=== PATIENT | female | born 1955 | race Caucasian/White ===

== ENCOUNTER 2017-10-19 14:26 | Outpatient (CLI) | payer BC | END 2017-10-19 14:27 | disposition critical access hospital (66) | LOC: EMS 14:26 | PROVIDERS: ATTEND Surgery | DX: R11.2 Nausea with vomiting, unspecified (principal) | CPT/HCPCS: A0425; A0427 ==

== ENCOUNTER 2017-10-19 14:44 | Emergency (ER) | payer BC ==
[2017-10-19] MEDS ORDERED: PROMETHAZINE INJ 12.5 MG in SODIUM CHLORIDE 0.9% 50 ML IV STA (15:06)
[2017-10-19] MEDS ORDERED: SODIUM CHLORIDE 0.9% 1,000 ML IV ONE ×2 (15:06→16:12)
[2017-10-19] MEDS ORDERED: PROMETHAZINE 25 MG/1 ML VIAL ONE (15:16)
[2017-10-19] MEDS ORDERED: LORazepam 2 MG/ML SYRINGE IVP STA (15:22)
[2017-10-19 15:26] LABS: BASOPHILS # (AUTO) 0.1 10^3/uL (0.0-0.1); BASOPHILS % (AUTO) 0.8 %; EOSINOPHILS # (AUTO) 0.1 10^3/uL (0.0-0.7); EOSINOPHILS % (AUTO) 0.6 %; HCT - HEMATOCRIT 40.1 % (37.0-47.0); HGB - HEMOGLOBIN 13.5 g/dL (12.0-16.0); LYMPHOCYTES # (AUTO) 1.1 10^3/uL (1.5-3.5); LYMPHOCYTES % (AUTO) 12.5 %; MEAN CORPUSCULAR HEMOGLOBIN 30.2 pg (27.0-31.0); MEAN CORPUSCULAR HGB CONC 33.8 g/dL (32.0-36.0); MEAN CORPUSCULAR VOLUME 89.4 fL (81.0-99.0); MEAN PLATELET VOLUME 8.1 fL (7.9-10.8); MONOCYTES % (AUTO) 11.8 %; NEUTROPHILS # (AUTO) 6.3 10^3/uL (1.5-6.6); NEUTROPHILS % (AUTO) 74.3 %; RED BLOOD COUNT 4.48 10^6/uL (4.20-5.40); RED CELL DISTRIBUTION WIDTH 13.3 % (12.0-15.0); UNCORRECTED WHITE BLOOD COUNT 8.4 x10^3/uL; WHITE BLOOD COUNT 8.4 x10^3/uL (4.8-10.8)
[2017-10-19 15:37] LABS: ALBUMIN/GLOBULIN RATIO 1.1 (1.0-2.2); BILIRUBIN,TOTAL 0.6 mg/dL (0.2-1.0); CALCIUM 10.2 mg/dL (8.5-10.3); CREATININE 0.8 mg/dL (0.4-1.0); TOTAL PROTEIN 6.8 g/dL (6.7-8.2)
[2017-10-19] MEDS ORDERED: LORazepam 2 MG/ML SYRINGE ONE (16:17)
[2017-10-19] MEDS ORDERED: HALOPERIDOL 5 MG/ML VIAL IVP ONE (16:36)
[2017-10-19] MEDS ORDERED: HALOPERIDOL 5 MG/ML VIAL ONE (16:47)
[2017-10-19] MEDS ORDERED: POTASSIUM CHLOR 10 MEQ/100 ML 10 MEQ/100 ML BAG IV ONE ×2 (17:55→18:21)
[2017-10-19] MEDS ORDERED: diphenhydrAMINE INJ 50 MG/ML VIAL IVP STA (18:00)
[2017-10-19 18:16] LABS: BILIRUBIN,URINE NEGATIVE (NEGATIVE); UA w/ MICROSCOPIC CHARGE YES
[2017-10-19] MEDS ORDERED: diphenhydrAMINE INJ 50 MG/ML VIAL ONE (18:21)
[2017-10-19 18:23] LABS: UR CULTURE IF IND NOT INDICATED; WBC,URINE 0-3 /HPF (0-5)
--- NOTE | 2017-10-19 18:37 | ED Physician Documentation ---
PD HPI ABD PAIN - Stated complaint Stated Complaint: N/V - Chief complaint Chief Complaint: Abd Pain - History obtained from History obtained from: Patient - History of Present Illness Timing - duration: Weeks (2) Timing - details: Still present Quality: Aching (mild) Location: Epigastric Associated symptoms: Nausea, Vomiting. No: Fever, Diarrhea, Dysuria, Chest pain - Additional information Additional information: The patient is a 62-year-old female who presents with nausea and vomiting of 2 weeks duration. She has a history of Mnire's disease and has had similar episodes in the past, sometimes lasting as long as 3 weeks. She reports mild upper abdominal discomfort. She denies fever or dysuria. She reports decreased urine output. Zofran has helped in the past, but she recently moved here from [place] and has no local physician and currently has no Zofran. Past medical history is significant for breast cancer for which she is status post right lumpectomy and chemotherapy. Review of Systems Constitutional: denies: Fever Ears: denies: Tinnitus/ringing Nose: denies: Congestion Throat: denies: Sore throat Cardiac: denies: Chest pain / pressure Respiratory: denies: Dyspnea, Cough GI: reports: Abdominal Pain (Mild), Nausea, Vomiting. 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 Psych: Depression, Anxiety - Past Surgical History Past Surgical History: Yes /[employer] ARCHITECT: Other (lumpectomy for breast cancer) HEENT: Tonsil/Adenoidectomy - Present Medications Home Medications: Ambulatory Orders Medication Instructions Recorded Confirmed Citalopram Hydrobromide 0 mg PO DAILY 10/19/17 10/19/17 [Citalopram HBr] Ondansetron Odt [Zofran] 4 mg TL Q6H PRN #14 tablet 10/19/17 Rosuvastatin Calcium [Crestor] 20 mg PO DAILY 10/19/17 10/19/17 - Allergies Allergies/Adverse Reactions: Allergies Allergy/AdvReac Type Severity Reaction Status Date / Time No Known Drug Allergies Allergy Verified 10/19/17 14:50 - Social History Does the pt smoke?: Yes Smoking Status: Current every day smoker Does the pt drink ETOH?: Yes Additional Social History: Recently moved here from [place]. - POLST Patient has POLST: No PD ED PE NORMAL - Vitals Vital signs reviewed: Yes (tachycardia) - General General: Alert and oriented X 3, Well developed/nourished, Other (Appears miserable, wretching upon arrival in ED.) - HEENT HEENT: Atraumatic, EOMI, Moist mucous membranes, Pharynx benign - Neck Neck: Supple, no meningeal sign, No adenopathy, No JVD - Cardiac Cardiac: No murmur, Other (Rapid rate, regular rhythm.) - Respiratory Respiratory: No respiratory distress, Clear bilaterally - Abdomen Abdomen: Soft, Non tender, No organomegaly - Back Back: No CVA TTP - Derm Derm: No rash - Extremities Extremities: No edema, No calf tenderness / cord - Neuro Neuro: Alert and oriented X 3, No motor deficit, No sensory deficit Results - Vitals Vitals: Oxygen O2 Source Room air - Labs Labs: Laboratory Tests 10/19/17 10/19/17 10/19/17 15:18 15:18 18:10 WBC 8.4 RBC 4.48 Hgb 13.5 Hct 40.1 MCV 89.4 MCH 30.2 MCHC 33.8 RDW 13.3 Plt Count 305 MPV 8.1 Neut # 6.3 Lymph # 1.1 L [place] # 1.0 Eos # 0.1 Baso # 0.1 Absolute Nucleated RBC 0.00 Nucleated RBC % 0.0 Sodium 135 Potassium 3.0 L Chloride 99 L Carbon Dioxide 22 Anion Gap 14.0 H BUN 16 Creatinine 0.8 Estimated GFR (MDRD) 73 L Glucose 133 H Calcium 10.2 Total Bilirubin 0.6 AST 19 ALT 18 Alkaline Phosphatase 123 H Total Protein 6.8 Albumin 3.6 Globulin 3.2 Albumin/Globulin Ratio 1.1 Lipase 31 Urine Color YELLOW Urine Clarity CLEAR Urine pH 6.0 Ur Specific [place] >=1.030 H Urine Protein NEGATIVE Urine Glucose (UA) NEGATIVE Urine Ketones 40 H Urine Occult Blood NEGATIVE Urine Nitrite NEGATIVE Urine Bilirubin NEGATIVE Urine Urobilinogen 0.2 (NORMAL) Ur Leukocyte Esterase TRACE H Urine RBC None Seen Urine WBC 0-3 Ur Squamous Epith Cells MOD Squamous H Urine Bacteria Few Urine Casts 3-5 Hyaline Casts Urine Mucus Moderate Strands Ur Microscopic Review INDICATED Urine Culture Comments NOT INDICATED PD MEDICAL DECISION MAKING - ED course Complexity details: reviewed results, re-evaluated patient, considered differential, d/w patient ED course: The patient's presentation is significant for prolonged nausea and vomiting with associated dehydration. The underlying cause of her nausea and vomiting is most likely exacerbation of her Mnire's disease. The possibility of drug withdrawal was considered, but the patient denies any history of chronic narcotic, benzodiazepine, opiate drug use, or alcohol. Her presentation does not suggest an acute abdomen. Treatment in the emergency department included administration of normal saline 2 L IV, Phenergan 12.5 mg IV, lorazepam 1 mg IV, Haldol 1 mg IV, with Benadryl 25 mg IV. In addition potassium 25 mEq was administered orally for a low potassium of 3.0. Following the above treatment the patient felt subjectively improved, and her nausea resolved. She is being discharged with prescription for Zofran. I discussed with her symptomatic treatment, outpatient follow-up, as well as potentially worrisome signs or symptoms that should prompt reevaluation in the emergency department. Departure - Departure Disposition: 01 Home, Self Care Clinical Impression: Dehydration, Hypokalemia Vomiting Qualifiers: Vomiting type: unspecified Vomiting Intractability: unspecified Nausea presence : with nausea Qualified Code(s): R11.2 - Nausea with vomiting, unspecified Menieres disease Qualifiers: Laterality: unspecified laterality Qualified Code(s): H81.09 - Meniere's disease, unspecified ear Condition: Stable Instructions: ED Dehydration, ED Meniere Disease, ED Nausea Vomiting Follow-Up: [facility] [Provider Group] Prescriptions: Ondansetron Odt [Zofran] 4 mg TL Q6H PRN #14 tablet PRN Reason: Nausea / Vomiting Comments: Drink plenty of fluids. You can use Zofran as prescribed if needed for nausea. Follow-up with primary physician within 1-2 weeks. Call to schedule appointment. Return to the emergency department if you develop increasing abdominal pain, persistent vomiting, recurrent dehydration, or otherwise worsening symptoms. Discharge Date/Time: 10/19/17 19:25
[2017-10-19] MEDS ORDERED: POTASSIUM BICARB 25 MEQ TABLET PO STA (18:43)
[2017-10-19] MEDS ORDERED: POTASSIUM BICARB 25 MEQ TABLET PO ONE (18:53)
[2017-10-19 19:26] VITALS: BP 147/69
== END 2017-10-19 19:25 | disposition home or self-care (01) ==
LOC: ED 14:44
DX: E86.0 Dehydration (principal); E87.6 Hypokalemia; H81.09 Meniere's disease, unspecified ear; Z85.3 Personal history of malignant neoplasm of breast; F17.200 Nicotine dependence, unspecified, uncomplicated
CPT/HCPCS: 36415; 80053; 81001; 83690; 85025; 96361; 96365; 96375; 99284; A9270; J2060; J7040; 81003; 87086

== ENCOUNTER 2017-11-19 14:11 | Emergency (ER) | payer BC ==
[2017-11-19] MEDS ORDERED: KETOROLAC 60 MG/2 ML VIAL IVP STA (14:52)
[2017-11-19] MEDS ORDERED: SODIUM CHLORIDE 0.9% 1,000 ML IV ONE (14:52)
[2017-11-19] MEDS ORDERED: LORazepam 2 MG/ML VIAL IVP STA ×2 (14:52→18:27)
--- NOTE | 2017-11-19 15:02 | ED Physician Documentation ---
PD HPI CHEST PAIN - Stated complaint Stated Complaint: COUGHING/VOMITING - Chief complaint Chief Complaint: Abd Pain - History obtained from History obtained from: Patient - History of Present Illness Timing - onset: Other (Recently moved from [place]. She lives with her here. She has a history of Mnire's disease and is a heavy smoker. Since late September she has had an exacerbation of her many years and basically feels dizzy all the time and is vomiting a lot. She also started coughing yesterday and has bilateral anterior rib pain from coughing. 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 Psych: Depression, Anxiety - Past Surgical History Past Surgical History: Yes /BUILDING CERTIFIER: Other (lumpectomy for breast cancer) HEENT: Tonsil/Adenoidectomy - Present Medications Home Medications: Ambulatory Orders Medication Instructions Recorded Confirmed Citalopram Hydrobromide 0 mg PO DAILY 10/19/17 10/19/17 [Citalopram HBr] Ondansetron Odt [Zofran] 4 mg TL Q6H PRN #14 tablet 10/19/17 Rosuvastatin Calcium [Crestor] 20 mg PO DAILY 10/19/17 10/19/17 diazePAM [Valium] 5 mg PO TID PRN #20 tablet 11/19/17 - Allergies Allergies/Adverse Reactions: Allergies Allergy/AdvReac Type Severity Reaction Status Date / Time No Known Drug Allergies Allergy Verified 11/19/17 14:16 - Social History Does the pt smoke?: Yes Smoking Status: Current every day smoker Does the pt drink ETOH?: Yes - Family History Family history: reports: Non contributory - POLST Patient has POLST: No PD ED PE NORMAL - Vitals Vital signs reviewed: Yes - General General: Alert and oriented X 3, No acute distress - HEENT HEENT: PERRL, EOMI, Ears normal - Neck Neck: Supple, no meningeal sign, No bony TTP - Cardiac Cardiac: RRR, No murmur, Other (Tenderness of both anterior low ribs on both sides.) - Respiratory Respiratory: No respiratory distress, Clear bilaterally - Abdomen Abdomen: Soft, Non tender - Extremities Extremities: No edema, No calf tenderness / cord - Neuro Neuro: Alert and oriented X 3, associate broker 2-12 intact, Normal speech Eye Opening: Spontaneous Motor: Obeys Commands Verbal: Oriented GCS Score: 15 - Psych Psych: Normal mood, Normal affect Results - Vitals Vitals: Vital Signs - 24 hr 11/19/17 14:14 Temperature 36.3 C L Heart Rate 110 H Respiratory 18 Rate Blood Pressure 114/46 L O2 Saturation 96 Oxygen O2 Source Room air - Labs Labs: Laboratory Tests 11/19/17 11/19/17 15:16 15:16 WBC 12.0 H RBC 4.47 Hgb 13.1 Hct 38.9 MCV 86.9 MCH 29.3 MCHC 33.7 RDW 13.5 Plt Count 351 MPV 8.0 Neut # Not Reportable Lymph # Not Reportable [place] # Not Reportable Eos # Not Reportable Baso # Not Reportable Absolute Nucleated RBC Not Reportable Total Counted 100 Band Neuts % (Manual) 1 Abnorm Lymph % (Manual) 0 Nucleated RBC % Not Reportable Neutrophils # (Manual) 9.4 H Lymphocytes # (Manual) 1.4 L Monocytes # (Manual) 1.2 H Eosinophils # (Manual) 0.0 Basophils # (Manual) 0.0 Differential Comment MANUAL DIFFERENTIAL Manual Slide Review Indicated Platelet Estimate NORMAL (130-450,000) Platelet Morphology RARE GIANT PLATELETS RBC Morph Micro Appear NORMAL APPEARANCE Sodium 127 L Potassium 3.3 L Chloride 88 L Carbon Dioxide 26 Anion Gap 13.0 BUN 11 Creatinine 0.5 Estimated GFR (MDRD) 125 Glucose 133 H Calcium 10.5 H Total Bilirubin 0.6 AST 33 ALT 62 H Alkaline Phosphatase 175 H Total Protein 7.2 Albumin 2.6 L Globulin 4.6 H Albumin/Globulin Ratio 0.6 L Lipase 34 Ethyl Alcohol < 5.0 - Rads (name of study) B ribs and CXR Radiology: EMP read contemporaneously (Right upper lobe opacity, no rib fracture ) CT Chest Radiology: EMP read contemporaneously (Right upper lobe cavitary mass with extension to the pleura and mediastinal lymphadenopathy. This is consistent with a primary lung cancer and there are multiple areas of metastasis including the left ventricle, left anterior chest wall, right abdominal wall mass, multiple liver metastases, pancreatic masses, adrenal metastasis and complex left renal mass.) PD MEDICAL DECISION MAKING - ED course ED course: This is a 62-year-old woman who presents with dizziness, weight loss, and chest pain that she thinks is from her ribs. X-ray demonstrates what is concerning for lung cancer and this is followed with a chest CT that confirmed the diagnosis. She plans to go home to [place] to have this treated and requested a prescription for Valium in the interim which is not unreasonable. Departure - Departure Disposition: , Self Care Clinical Impression: Dizziness Metastatic primary lung cancer Qualifiers: Laterality: right Qualified Code(s): C34.91 - Malignant neoplasm of unspecified part of right bronchus or lung Condition: Good Record reviewed to determine appropriate education?: Yes Instructions: Cancer Lung Dc Prescriptions: diazePAM [Valium] 5 mg PO TID PRN #20 tablet PRN Reason: Spasms Comments: Follow-up with your oncologist as soon as possible with a copy of your CAT scan on CD. Return anytime if worse. Do not drink or drive while taking the Valium.
[2017-11-19 15:27] LABS: BASOPHILS % (AUTO) 0.4 %; EOSINOPHILS % (AUTO) 0.7 %; HGB - HEMOGLOBIN 13.1 g/dL (12.0-16.0); LYMPHOCYTES % (AUTO) 9.8 %; MEAN CORPUSCULAR HEMOGLOBIN 29.3 pg (27.0-31.0); MEAN CORPUSCULAR HGB CONC 33.7 g/dL (32.0-36.0); MEAN CORPUSCULAR VOLUME 86.9 fL (81.0-99.0); MONOCYTES % (AUTO) 10.8 %; NEUTROPHILS % (AUTO) 78.3 %; PLT - PLATELET COUNT 351 10^3/uL (130-450); RED BLOOD COUNT 4.47 10^6/uL (4.20-5.40); RED CELL DISTRIBUTION WIDTH 13.5 % (12.0-15.0)
[2017-11-19 15:30] LABS: ABNORMAL LYMPHS % (MANUAL) 0 %
[2017-11-19 15:32] LABS: ALBUMIN 2.6 g/dL (3.2-5.5); ALBUMIN/GLOBULIN RATIO 0.6 (1.0-2.2); ALKALINE PHOSPHATASE 175 IU/L (42-121); ALT ALANINE AMINOTRANSFERASE 62 IU/L (10-60); AST ASPARTATE AMINOTRANSFERASE 33 IU/L (10-42); BILIRUBIN,TOTAL 0.6 mg/dL (0.2-1.0); BUN - BLOOD UREA NITROGEN 11 mg/dL (6-20); CALCIUM 10.5 mg/dL (8.5-10.3); CARBON DIOXIDE - CO2 26 mmol/L (21-32); CHLORIDE 88 mmol/L (101-111); CREATININE 0.5 mg/dL (0.4-1.0); GFR - MDRD 125 (>89); GLUCOSE 133 mg/dL (70-100); LIPASE 34 U/L (22-51); SODIUM 127 mmol/L (135-145); TOTAL PROTEIN 7.2 g/dL (6.7-8.2)
[2017-11-19 15:52] LABS: BAND NEUTROPHILS % (MANUAL) 1 %; LYMPHOCYTES # (MANUAL) 1.4 10^3/uL (1.5-3.5); LYMPHOCYTES % (MANUAL) 12 %; MONOCYTES # (MANUAL) 1.2 10^3/uL (0.0-1.0); NEUTROPHILS # (MANUAL) 9.4 10^3/uL (1.5-6.6); NEUTROPHILS % (MANUAL) 77 %; PLATELET MORPHOLOGY RARE GIANT PLATELETS (NORMAL); RBC MORPHOLOGY (MULTIPLE) NORMAL APPEARANCE (NORMAL)
[2017-11-19 15:53] LABS: DIFFERENTIAL COMMENT MANUAL DIFFERENTIAL; PLATELET ESTIMATE, MANUAL NORMAL (130-450,000) (NORMAL)
--- NOTE | 2017-11-19 16:01 | XRAY Report ---
EXAM: BILATERAL RIB RADIOGRAPHY EXAM DATE: 11/19/2017 03:38 PM. CLINICAL HISTORY: Ribs pain. COMPARISON: None. TECHNIQUE: 1 view of the chest and 3 views of the ribs. FINDINGS: Bones: Normal. No fracture or bone lesion. Lungs: There is an irregular focal opacity located within the right upper lobe. There is no pneumotho rax. The left lung appears clear. Mediastinum: Heart and mediastinal contours are unremarkable. Other: None. IMPRESSION: 1. Right upper lobe opacity with differential diagnosis including pneumonia, neoplasm, scarring. Comp arison with previous chest x-ray recommended. Serial follow-up chest x-ray recommended if findings ar e clinically suspicious for pneumonia. Depending on clinical suspicion, CT could be considered. 2. No rib fracture. [facility] Referring Provider Line: [phone] SITE ID: [id number]
--- NOTE | 2017-11-19 16:01 | XRAY Preliminary Report ---
Exam: XR RIBS BILAT W/CHEST 4 VIEW IMPRESSION: 1. Right upper lobe opacity with differential diagnosis including pneumonia, neoplasm, scarring. Comp arison with previous chest x-ray recommended. Serial follow-up chest x-ray recommended if findings ar e clinically suspicious for pneumonia. Depending on clinical suspicion, CT could be considered. 2. No rib fracture. [facility] SITE ID: [id number]
[2017-11-19] MEDS ORDERED: MORPHINE 2 MG/ML SYRINGE IVP STA (16:27)
[2017-11-19] MEDS ORDERED: IOPAMIDOL-300 100 ML VIAL ONE (16:40)
[2017-11-19] MEDS ORDERED: IOPAMIDOL-300 100 ML VIAL IVP ONE (17:00)
--- NOTE | 2017-11-19 18:13 | CT Preliminary Report ---
Exam: CT CHEST W/ IMPRESSION: 1. Large right upper lobe cavitary lung mass with extension to the pleura and right hilum most concer hawa for lung malignancy. Mediastinal lymphadenopathy most concerning for metastasis. 2. Multiple low-density masses in the left ventricle myocardium. These are concerning for multiple my ocardial metastasis. 3. Left anterior chest wall masses concerning for metastasis. Right upper abdominal wall mass concern ing for metastasis. 4. Multiple liver metastasis. 5. Multiple pancreatic masses, could represent metastasis versus primary neoplasm. 6. Possible adrenal metastasis. 7. Complex left renal mass, could represent metastasis versus primary renal malignancy versus complex renal cyst. Otherwise, as above. [facility] SITE ID: [id number]
--- NOTE | 2017-11-19 18:36 | CT Report ---
EXAM: CT CHEST EXAM DATE: 11/19/2017 05:01 PM. CLINICAL HISTORY: Abnormal chest x-ray. COMPARISONS: Chest 11/19/2017. TECHNIQUE: Routine helical CT imaging was performed through the chest. IV contrast: None. Reconstruct ions: Coronal and sagittal. In accordance with CT protocol optimization, one or more of the following dose reduction techniques w ere utilized for this exam: automated exposure control, adjustment of mA and/or KV based on patient s ize, or use of iterative reconstructive technique. FINDINGS: Lungs: Thick-walled cavitary mass seen in the right upper lobe extending to the right hilum measures 6 x 3.7 cm on axial image 25. There is adjacent lung airspace disease. Small nodular opacities seen s uperior to the mass concerning for local metastasis. Opacification extends to the pleura with focal p leural thickening seen at the anterolateral aspect. Emphysema is present, mild to moderate. No pleura l effusion or pneumothorax. Mediastinum: Few tiny low densities in the thyroid, one of the largest seen on the right side measuri ng 5 mm, could be tiny thyroid cyst or low density nodules. Right-sided paratracheal lymphadenopathy measures 1.7 x 2.1 cm on axial image 22. Subcarinal lymphade nopathy measures 1.8 cm on axial image 30. Right hilar mass measures 3.8 x 2.4 cm on axial image 29. Anterior to this is lymphadenopathy that is located lateral to the superior vena cava, measures 1.8 x 2 cm on axial image 31. Normal heart size. Multiple low density masses are seen in the left ventricle in the myocardium, one of the largest is seen at the inferior aspect measuring 3.1 x 2.6 cm. There is a left lateral ventric ular mass measuring 2.3 x 3.6 cm extending into the pericardium. No thoracic aortic aneurysm or disse ction. Coronary artery calcification. Small pericardial effusion. Upper abdomen: Multiple small masses or nodular thickening of the bilateral adrenal glands. Adrenal m etastasis not excluded. Multiple low density masses concerning for liver metastasis, one of the largest measures 2.5 cm in th e lateral segment left hepatic lobe. There are a couple of masses at the junction of the right and le ft hepatic lobe, largest measures 2.4 cm. Multiple low-density masses are seen at the body of the garner creas with the group of masses together measuring 4 x 3.6 cm on axial image 62. There is a small low- density mass at the uncinate process of the pancreas measuring 9 mm. There is a complex-appearing mas s seen at the anterior midpole left kidney on axial image 70 measuring 2 x 2.1 cm. Tiny nonspecific l ow-density lesion is seen medial to this measuring 5 mm. Anterior to the left second rib, there is a chest wall mass measuring 1.9 x 1.5 cm on axial image 20 concerning for metastasis. Another mass anterior to the left anterior sixth rib concerning for metast asis measures 2.5 x 1.6 cm. Right upper abdomen lateral wall subcutaneous mass in the wall measuring 9 mm, probably a metastasis. No acute bone findings are seen. IMPRESSION: 1. Large right upper lobe cavitary lung mass with extension to the pleura and right hilum most concer hawa for lung malignancy. Mediastinal lymphadenopathy most concerning for metastasis. 2. Multiple low-density masses in the left ventricle in the myocardium. These are concerning for mult iple myocardial metastasis. 3. Left anterior chest wall masses concerning for metastasis. Right upper abdominal wall mass concern ing for metastasis. 4. Multiple liver metastasis. 5. Multiple pancreatic masses, could represent metastasis versus primary neoplasm. 6. Possible adrenal metastasis. 7. Complex left renal mass, could represent metastasis versus primary renal malignancy versus complex renal cyst. Otherwise, as above. [facility] Referring Provider Line: [phone] SITE ID: [id number]
[2017-11-19 18:39] VITALS: BP 110/62
[2017-11-19] MEDS ORDERED: POTASSIUM BICARB 25 MEQ TABLET PO STA (18:44)
[2017-11-19] MEDS ORDERED: diphenhydrAMINE 25 MG CAPSULE PO STA (19:00)
== END 2017-11-19 19:25 | disposition home or self-care (01) ==
LOC: ED 14:11
DX: C78.01 Secondary malignant neoplasm of right lung (principal); R42 Dizziness and giddiness; K86.89 Other specified diseases of pancreas; N28.89 Other specified disorders of kidney and ureter; Z85.3 Personal history of malignant neoplasm of breast; H81.09 Meniere's disease, unspecified ear; F17.200 Nicotine dependence, unspecified, uncomplicated
CPT/HCPCS: 36415; 71111; 71260; 80053; 80320; 83690; 85025; 96374; 96375; 96376; 99283; 99284; A9270; J2060; J2270; Q9967